=== PATIENT | male | born 1965 | race Caucasian/White ===

== ENCOUNTER 2017-08-14 11:33 | Emergency (ER) | payer SELFPAY | END 2017-08-14 11:50 | disposition left against medical advice (07) | LOC: EMR 11:50 | DX: Z53.21 Procedure and treatment not carried out due to patient leaving prior to being seen by health care provider (principal) | CPT/HCPCS: 99281 ==

== ENCOUNTER 2018-01-18 10:51 | Emergency (ER) | payer MEDICAID ==
[~2018-01-18] VITALS: Ht 172.7 cm; Wt 68.0 kg
[2018-01-18] MEDS ORDERED: REYATAZ300 MG ORAL (11:10)
[2018-01-18] MEDS ORDERED: DESCOVY 200-251 EACH PO (11:10)
[2018-01-18] MEDS ORDERED: NORVIR100 MG ORAL (11:10)
--- NOTE | 2018-01-18 11:22 | Emergency Room Report ---
History of Present Illness General Chief Complaint: Behavioral Complaint Source: Patient Present Illness HPI This patient has a history of schizophrenia. He had been on a cocktail of antipsychotic medications previously. He was being followed by a psychiatrist Dr. Morrissey. He had been on [employer] flores long others. He had stopped all of the medications for 6 weeks as a preparation to be transitioned to a different antipsychotic that he is unsure of the name of. However, he decided to change psychiatrist and has not been back for the past 6 months. He states he noted hallucinations starting 6 months ago. He states that over the past 2 weeks the hallucinations have been daily and persistent. He states they are negative the voices that tell him to pull up his pants or brush his teeth or criticized him. He states he is also having difficulty sleeping. He states he does occasionally use methamphetamine. He states the last time he is methamphetamine was 2 weeks ago. He has no other complaints. He denies fever or chills. He denies headache or neck pain. He denies chest pain or shortness of breath. He has no other complaints. Allergies: Coded Allergies: No Known Allergies (Unverified , 01/18/18) Patient History Past Medical History: see triage record, HIV Social History: Reports: smoking, drug use, Denies: alcohol use Reviewed Nursing Documentation: PMH: Agreed, PSxH: Agreed Review of Systems All Other Systems: negative except mentioned in HPI Physical Exam Vital Signs Date Time Temp Pulse Resp B/P (MAP) Pulse Ox O2 Delivery O2 Flow Rate FiO2 01/18/18 11:04 98.4 69 18 126/85 99 Room Air 98.4 Sp02 EP Interpretation: reviewed, normal General Appearance: no apparent distress, alert, GCS 15, non-toxic Head: normocephalic, atraumatic Eyes: bilateral eye normal inspection, bilateral eye PERRL ENT: hearing grossly normal, normal pharynx, no angioedema, normal voice Neck: full range of motion, supple/symm/no masses Respiratory: chest non-tender, lungs clear, normal breath sounds, speaking full sentences Cardiovascular #1: regular rate, rhythm, no edema Gastrointestinal: normal bowel sounds, non tender, soft, non-distended, no guarding, no rebound Rectal: deferred Musculoskeletal: back normal, gait/station normal, normal range of motion, non- tender Neurologic: alert, oriented x3, responsive, motor strength/tone normal, sensory intact, speech normal Psychiatric: judgement/insight normal, memory normal, no suicidal/homicidal ideation, other - reports hallucinations Skin: normal color, no rash, warm/dry, well hydrated Medical Decision Making Diagnostic Impression: Primary Impression: Schizophrenia Additional Impression: Drug abuse and dependence ER Course The patient presents with hallucinations. I suspect he may have an element of schizophrenia. He also has a positive urine drug screen for opiates, marijuana and amphetamines. I suspect that there is a drug abuse component. The patient denies suicidal or homicidal ideation. The voices and has had are not violent. I asked the patient if he would like to go to inpatient psychiatry and he declined. He is requesting antianxiety and sleep medications. I did educate him that he will not be getting controlled substances here in the emergency department. I will start him on Geodon. He is educated to see his psychiatrist for all of his psychiatric medications. At this time I did not identify an emergency medical condition. The patient is given return precautions and follow-up injections. Laboratory Tests Test 01/18/18 12:22 White Blood Count 5.6 K/UL (4.8-10.8) Red Blood Count 5.02 M/UL (4.70-6.10) Hemoglobin 16.3 G/DL (14.2-18.0) Hematocrit 47.6 % (42.0-52.0) Mean Corpuscular Volume 95 FL (80-99) Mean Corpuscular Hemoglobin 32.4 PG (27.0-31.0) H Mean Corpuscular Hemoglobin Concent 34.2 G/DL (32.0-36.0) Red Cell Distribution Width 11.3 % (11.6-14.8) L Platelet Count 221 K/UL (150-450) Mean Platelet Volume 5.9 FL (6.5-10.1) L Neutrophils (%) (Auto) 58.7 % (45.0-75.0) Lymphocytes (%) (Auto) 30.2 % (20.0-45.0) Monocytes (%) (Auto) 8.4 % (1.0-10.0) Eosinophils (%) (Auto) 1.9 % (0.0-3.0) Basophils (%) (Auto) 0.8 % (0.0-2.0) Sodium Level 138 MMOL/L (136-145) Potassium Level 5.0 MMOL/L (3.5-5.1) Chloride Level 101 MMOL/L (98-107) Carbon Dioxide Level 35 MMOL/L (21-32) H Anion Gap 2 mmol/L (5-15) L Blood Urea Nitrogen 16 mg/dL (7-18) Creatinine 1.0 MG/DL (0.55-1.30) Estimate Glomerular Filtration Rate > 60 mL/min (>60) Glucose Level 85 MG/DL (74-106) Calcium Level 8.9 MG/DL (8.5-10.1) Total Bilirubin 1.7 MG/DL (0.2-1.0) H Direct Bilirubin 0.2 MG/DL (0.0-0.3) Aspartate Amino Transferase (AST) 20 U/L (15-37) Alanine Aminotransferase (ALT) 21 U/L (12-78) Alkaline Phosphatase 86 U/L (46-116) Total Protein 7.8 G/DL (6.4-8.2) Albumin 3.6 G/DL (3.4-5.0) Globulin 4.2 g/dL Albumin/Globulin Ratio 0.9 (1.0-2.7) L Thyroid Stimulating Hormone (TSH) 3.518 uiU/mL (0.358-3.740) Salicylates Level 0.9 ug/mL (2.8-20) L Urine Opiates Screen Positive (NEGATIVE) H Acetaminophen Level 6 MCG/ML (10-30) L Urine Barbiturates Screen Negative (NEGATIVE) Phencyclidine (PCP) Screen Negative (NEGATIVE) Urine Amphetamines Screen Positive (NEGATIVE) H Urine Benzodiazepines Screen Negative (NEGATIVE) Urine Cocaine Screen Negative (NEGATIVE) Urine Marijuana (THC) Screen Positive (NEGATIVE) H Serum Alcohol < 3 mg/dL Last Vital Signs Date Time Temp Pulse Resp B/P (MAP) Pulse Ox O2 Delivery O2 Flow Rate FiO2 01/18/18 11:04 98.4 69 18 126/85 99 Room Air 98.4 Status: improved Disposition: HOME, SELF-CARE Condition: Improved Patient Instructions: Self-Destructive Behavior IZA JIMÉNEZ D.O. Jan 18, 2018 11:22
[2018-01-18 12:38] LABS: BASOPHILS % (AUTO) 0.8 % (0.0-2.0); EOSINOPHILS % (AUTO) 1.9 % (0.0-3.0); HEMATOCRIT 47.6 % (42.0-52.0); HEMOGLOBIN 16.3 G/DL (14.2-18.0); LYMPHOCYTES % (AUTO) 30.2 % (20.0-45.0); MEAN CORPUSCULAR VOLUME 95 FL (80-99); MONOCYTES % (AUTO) 8.4 % (1.0-10.0); NEUTROPHILS % (AUTO) 58.7 % (45.0-75.0); PLATELET COUNT 221 K/UL (150-450); RED BLOOD COUNT 5.02 M/UL (4.70-6.10); RED CELL DISTRIBUTION WIDTH 11.3 % (11.6-14.8); WHITE BLOOD COUNT 5.6 K/UL (4.8-10.8)
[2018-01-18 12:55] LABS: ANION GAP 2 mmol/L (5-15); BLOOD UREA NITROGEN 16 mg/dL (7-18); CALCIUM 8.9 MG/DL (8.5-10.1); CARBON DIOXIDE 35 MMOL/L (21-32); CHLORIDE 101 MMOL/L (98-107); SODIUM 138 MMOL/L (136-145)
[2018-01-18 13:11] LABS: ALANINE AMINOTRANSFERASE 21 U/L (12-78); ALBUMIN 3.6 G/DL (3.4-5.0); ALBUMIN/GLOBULIN RATIO 0.9 (1.0-2.7); ALKALINE PHOSPHATASE 86 U/L (46-116); ASPARTATE AMINO TRANSFERASE 20 U/L (15-37); BILIRUBIN,TOTAL 1.7 MG/DL (0.2-1.0)
[2018-01-18 13:18] LABS: BILIRUBIN,DIRECT 0.2 MG/DL (0.0-0.3)
[2018-01-18] MEDS ORDERED: TRAZODONE HCL50 MG ORAL (14:18)
[2018-01-18] MEDS ORDERED: GEODON20 MG ORAL (14:18)
[2018-01-18 14:25] VITALS: BP 111/75
== END 2018-01-18 14:25 | disposition home or self-care (01) ==
LOC: EMR 13:12
DX: F20.9 Schizophrenia, unspecified (principal); F19.10 Other psychoactive substance abuse, uncomplicated
CPT/HCPCS: 36415; 80053; 80307; 80329; 82248; 84443; 85025; 99283